=== PATIENT | male | born 1970 ===

== ENCOUNTER 2018-04-27 10:10 | Emergency (ER) | payer BC ==
[2018-04-27 10:27] VITALS: TEMP 98.7
--- NOTE | 2018-04-27 11:29 | C.PDOC ---
History Of Present Illness 47 y/o male presents to ED with c/o onset palpitations 2 hours prior to arrival while at work. Patient reports he took Tylenol sinus this morning that may have precipitated symptoms. Patient admits to sinus like pressure on face for 1 week associated with nasal congestion. At ED patient reports symptoms improved and denies chest pain, sob, numbness, weakness, cough, fever or any other complaints at this time. Time Seen by Provider: 04/27/18 10:17 Chief Complaint (Nursing): Palpitations History Per: Patient History/Exam Limitations: no limitations Onset/Duration Of Symptoms: Hrs Current Symptoms Are (Timing): Still Present Past Medical History Reviewed: Historical Data, Nursing Documentation, Vital Signs Vital Signs: Last Vital Signs Temp 98.7 F 04/27/18 13:29 Pulse 86 04/27/18 13:29 Resp 17 04/27/18 13:29 BP 128/85 04/27/18 13:29 Pulse Ox 96 04/27/18 13:29 - Medical History PMH: Anxiety, HTN Surgical History: No Surg Hx Family History: States: No Known Family Hx - Social History Hx Tobacco Use: No Hx Alcohol Use: No Hx Substance Use: No - Immunization History Hx Tetanus Toxoid Vaccination: No Hx Influenza Vaccination: No Hx Pneumococcal Vaccination: No Review Of Systems Constitutional: Negative for: Fever, Chills Cardiovascular: Positive for: Palpitations. Negative for: Chest Pain Respiratory: Negative for: Cough, Shortness of Breath Gastrointestinal: Negative for: Nausea, Vomiting, Abdominal Pain Skin: Negative for: Rash Neurological: Negative for: Weakness, Numbness Physical Exam - Physical Exam Appears: Non-toxic, No Acute Distress Skin: Warm, Dry, No Rash Head: Tenderness (bilateral maxillary sinus), No Swelling, No Abrasion Eye(s): bilateral: Normal Inspection Ear(s): Bilateral: Normal Oral Mucosa: Moist Throat: Erythema, Exudate Neck: Normal ROM, Supple Chest: Symmetrical, No Tenderness Cardiovascular: Rhythm Regular, No Friction Rub, No Murmur Respiratory: Normal Breath Sounds, No Rales, No Rhonchi, No Wheezing Gastrointestinal/Abdominal: Soft, No Tenderness, No Guarding, No Rebound Back: Normal Inspection, No CVA Tenderness Extremity: No Pedal Edema, No Calf Tenderness, Capillary Refill (<2 seconds) Neurological/Psych: Oriented x3, Normal Speech, Normal Cognition, Normal Motor, Normal Sensation Gait: Steady ED Course And Treatment - Laboratory Results Result Diagrams: 04/27/18 11:30 04/27/18 11:30 ECG: Interpreted By Me, Viewed By Me ECG Rhythm: Sinus Tachycardia Rate From EC (BPM) O2 Sat by Pulse Oximetry: 97 (RA) Pulse Ox Interpretation: Normal Medical Decision Making Medical Decision Making: Plan: Blood work, CXR ordered. On re-exam, the patient reports improvement of symptoms. Lungs are CTA, heart is RRR, abdomen is soft, non-tender and tolerating PO well. Patient is ambulatory in the ED with steady gait. Follow up with the medica doctor/clinic within 1-2 days. Return if worsened. Disposition - Disposition Referrals: [facility] [Outside] Disposition: HOME/ ROUTINE Disposition Time: 13:01 Condition: STABLE Additional Instructions: Follow up with the medica doctor/clinic within 1-2 days. Return if worsened. Prescriptions: Fluticasone Propionate [Flonase] 1 spr NS DAILY #100 spr Ibuprofen [Motrin] 1 tab PO TID PRN #30 tab PRN Reason: Pain Loratadine [Claritin] 10 mg PO DAILY #10 tab Instructions: Palpitations, Sinus Headache (DC) Forms: [employer] (Lao) - Clinical Impression Clinical Impression: Palpitations, Sinus headache - PA / TECHNICAL CUSTOMER SUPPORT SPECIALIST / Resident Statement MD/DO has reviewed & agrees with the documentation as recorded. - Scribe Statement The provider has reviewed the documentation as recorded by the [facility] All medical record entries made by the Scribe were at my direction and personally dictated by me. I have reviewed the chart and agree that the record accurately reflects my personal performance of the history, physical exam, medical decision making, and the department course for this patient. I have also personally directed, reviewed, and agree with the discharge instructions and disposition.
[2018-04-27 11:37] LABS: BASO % 0.4 % (0.0-2.0); EOS # 0.1 K/uL (0.0-0.7); EOS % 1.1 % (0.0-4.0); HEMOGLOBIN 13.9 g/dL (12.0-18.0); LYMPH # 0.9 K/uL (1.0-4.3); LYMPH % 11.6 % (20.0-40.0); MEAN CELL VOLUME 91.1 fL (80.0-94.0); MEAN CORPUSCULAR HEMOGLOBIN 31.6 pg (27.0-31.0); MEAN CORPUSCULAR HGB CONC 34.7 g/dL (33.0-37.0); MEAN PLATELET VOLUME 8.8 fL (7.2-11.7); MONO # 0.7 K/uL (0.0-0.8); MONO % 8.7 % (0.0-10.0); NEUT # 6.1 K/uL (1.8-7.0); NEUT % 78.2 % (50.0-75.0); RBC 4.39 Mil/uL (4.40-5.90); RED CELL DISTRIBUTION WIDTH 13.5 % (11.5-14.5); WHITE BLOOD COUNT 7.8 K/uL (4.8-10.8)
--- NOTE | 2018-04-27 11:39 | RAD ---
Chest x-ray single frontal view History: Palpitations. Comparison: None available. Findings: Mild venous congestion. Bilateral hilar prominence. Patchy increased markings at the lung bases. Small nodular density at the right lung base. Tortuous ectatic aorta. Degenerative changes in the spine and shoulders. Impression: Mild venous congestion. Bilateral hilar prominence. Patchy increased markings at the lung bases. Small nodular density at the right lung base. Tortuous ectatic aorta. Degenerative changes in the spine and shoulders.
[2018-04-27 11:48] LABS: ALB/GLOB RATIO 1.3 (1.0-2.1); ALBUMIN 4.4 g/dL (3.5-5.0); ALT/SGPT 35 U/L (21-72); AST/SGOT 23 U/L (17-59); BLOOD UREA NITROGEN 21 mg/dL (9-20); CALCIUM 9.1 mg/dl (8.6-10.4); GFR AFRICAN-AMERICAN > 60; GFR NON-AFRICAN AMERICAN > 60
[2018-04-27 13:30] VITALS: BP 128/85; PULSE 86; RESP 17
--- NOTE | 2018-04-28 12:56 | CARD ---
APPROVED REPORT Date of service: 04/27/2018 EKG Measurement Heart [id number] <Conclusion> Sinus tachycardia Nonspecific T wave abnormality Abnormal ECG
[2018-04-30 22:21] VITALS: O2SAT 97
== END 2018-04-27 13:29 | disposition home or self-care (01) ==
LOC: C.ER 10:10
DX: R00.2 Palpitations (principal); R51 Headache; I10 Essential (primary) hypertension

== ENCOUNTER 2018-10-14 06:59 | Day surgery (SDC) | payer BC ==
--- NOTE | 2018-10-14 08:41 | CP.SDSHP ---
Same Day Surgery H & P - History Proposed Procedure: colonoscopy Pre-Op Diagnosis: screening - Previous Medical/Surgical History Cardiac: Hypertension - Allergies Allergies: Allergies No Known Allergies Allergy (Verified 10/14/18 07:36) - Physical Exam General Appearance: NAD Vital Signs: Vital Signs 10/14/18 07:38 Temperature 98.9 F Pulse Rate 79 Respiratory 19 Rate Blood Pressure 131/90 O2 Sat by Pulse 97 Oximetry Mental Status: Alert & Oriented x3 Neuro: WNL Heart: WNL Lungs: WNL GI: WNL - {Optional Preform as Required} Abdomen: WNL - Impression Pt. Evaluated Today:Candidate for Anesthesia & Procedure: Yes - Date & Time Date: 10/14/18 Time: 08:40 Short Stay Discharge - Short Stay Discharge Admitting Diagnosis/Reason for Visit: SCREENING Disposition: HOME/ ROUTINE
[2018-10-14] MEDS ORDERED: Midazolam 2 MG/2 ML VIAL ONE (08:46)
[2018-10-14] MEDS ORDERED: Propofol 10 mg/ml Inj (20 ML) ONE (08:46)
[2018-10-14] MEDS ORDERED: Lidocaine Hydrochloride 5 ML INJ ONE (10:00)
[2018-10-14 10:40] VITALS: TEMP 96.9
[2018-10-14 10:47] VITALS: BP 109/67; PULSE 70; RESP 20; O2SAT 99
== END 2018-10-14 10:30 | disposition home or self-care (01) ==
LOC: C.ENDO 06:59
PROVIDERS: ATTEND Internal Medicine Gastroenterology
DX: Z12.11 Encounter for screening for malignant neoplasm of colon (principal); D12.4 Benign neoplasm of descending colon; K63.5 Polyp of colon; K62.1 Rectal polyp; I10 Essential (primary) hypertension
CPT/HCPCS: 45380; 45385; 88305; J2250; J2704; J3010; J7040